=== PATIENT | male | born 1985 | race Caucasian/White ===

== ENCOUNTER 2016-12-14 04:48 | Emergency (ER) | payer SELFPAY ==
[~2016-12-14] VITALS: Ht 177.8 cm; Wt 118.3 kg
[2016-12-14] MEDS ORDERED: ASPIRIN 81 MG CHEW (CHILDREN'S ASA) PO ONE (05:00)
[2016-12-14] MEDS: NITROGLYCERIN SUBLINGUAL 0.4 MG (NITROQUICK) TABLET SL PRN ×3 (05:02→05:19)
[2016-12-14] MEDS ORDERED: NITROGLYCERIN SUBLINGUAL 0.4 MG (NITROQUICK) TABLET SL ONE (05:02)
[2016-12-14] MEDS ORDERED: ASPIRIN 81 MG CHEW (CHILDREN'S ASA) ONE (05:02)
[2016-12-14] MEDS ORDERED: ONDANSETRON 2 MG/ML (Z0FRAN) 2 ML VIAL IV ONE (05:10)
[2016-12-14] MEDS ORDERED: SODIUM CHLORIDE FLUSH 10 ML SYR IV PRN (05:10)
[2016-12-14] MEDS ORDERED: ONDANSETRON 4 MG (ZOFRAN) ORAL DISSOLVE TAB PO ONE (05:10)
[2016-12-14] MEDS ORDERED: morphine INJ 4 MG/ML 1 ML SYRINGE IV PRN (05:10)
[2016-12-14] MEDS ORDERED: SODIUM CHLORIDE 250 ML IV PRN (05:10)
[2016-12-14] MEDS ORDERED: NITROGLYCERIN SUBLINGUAL 0.4 MG (NITROQUICK) TABLET SL PRN (05:10)
[2016-12-14] MEDS ORDERED: SODIUM CHLORIDE FLUSH 3 ML SYR IV PRN (05:10)
[2016-12-14] MEDS ORDERED: ONDANSETRON 4 MG (ZOFRAN) ORAL DISSOLVE TAB ONE (05:11)
[2016-12-14] MEDS ORDERED: AMIODARONE 150 MG/3 ML (CORDARONE) AMP IV ONE (05:33)
[2016-12-14] MEDS ORDERED: AMIODARONE FOR BOLUS 150 MG in D5W (IVPB) 100 ML IV ONE (05:35)
[2016-12-14] MEDS ORDERED: HEPARIN DRIP 25000 UNIT/250 ML 250 ML IV ONE ×2 (05:38→05:45)
[2016-12-14] MEDS ORDERED: HEPARIN 1000 UNIT/ML 2 ML VIAL IV ONE ×2 (05:38→05:45)
[2016-12-14 05:55] VITALS: BP 135/80
[2016-12-14 05:55] LABS: BASOPHILS % (AUTO) 0 % (0-2); EOSINOPHILS # (AUTO) 0.1 10^3uL; EOSINOPHILS % (AUTO) 1 % (0-4); LYMPHOCYTES # (AUTO) 4.2 X10^3; MEAN CORPUSCULAR HEMOGLOBIN 29.1 PG (26.0-34.0); MEAN CORPUSCULAR HGB CONC 34.5 g/dL (31.0-37.0); MEAN CORPUSCULAR VOLUME 84 FL (80-100); MEAN PLATELET VOLUME 10.7 FL (6.0-9.5); MONOCYTES % (AUTO) 9 % (3-11); NEUTROPHILS # (AUTO) 5.8 X10^3; NEUTROPHILS % (AUTO) 52 % (51-67); PLATELET COUNT 264 10^3uL (150-450); WHITE BLOOD COUNT 11.15 10^3uL (4.0-11.0)
[2016-12-14 06:03] LABS: ALKALINE PHOSPHATASE 97 U/L (38-126); ANION GAP 18.2 MEQ/L (3-15); BUN/CREATININE RATIO 10 (10-20); CALCULATED IONIZED CALCIUM 3.9 mg/dL (3.8-4.6); TOTAL PROTEIN 8.5 g/dL (6.4-8.5)
[2016-12-14 06:15] LABS: CREATINE KINASE 269 U/L (55-170)
== END 2016-12-14 06:25 | disposition short-term general hospital (02) ==
LOC: EDUNIT# 04:48 → ED 04:51
DX: R07.9 Chest pain, unspecified (principal); I10 Essential (primary) hypertension; Z87.891 Personal history of nicotine dependence
CPT/HCPCS: 36415; 71010; 80053; 82550; 82553; 83880; 84484; 85025; 85610; 85730; 93005; 96365; 96375; 99285; J0282; J1644; J2270; J7050; J7060; 93010; 99291

== ENCOUNTER → 2016-12-14 | Outpatient (CLI) | payer SELFPAY | LOC: EMS 06:30 | PROVIDERS: ATTEND Family Medicine | DX: R07.89 Other chest pain (principal); R94.31 Abnormal electrocardiogram [ECG] [EKG] ==